=== PATIENT | female | born 1990 | race Caucasian/White ===

== ENCOUNTER 2017-12-30 20:47 | Outpatient (CLI) | payer BC ==
[~2017-12-30] VITALS: Ht 157.5 cm; Wt 81.6 kg
[~2017-12-30 20:47] MED LIST: ENDOCET 5-3251 EACH PO; IBUPROFEN800 MG PO; MOTRIN800 MG PO; PERCOCET 5/31 TABLET PO; PRENATAL TABLE1 EAC3 PO
[2017-12-30 21:06] VITALS: BP 125/73
[2018-01-01] MEDS ORDERED: ZANTAC150 MG PO (08:19)
== END 2017-12-30 23:35 | disposition home or self-care (01) ==
LOC: LDRP-OP 20:47 → 2WEST 20:48 → LDRP-OP 02-08 10:33
DX: O47.1 False labor at or after 37 completed weeks of gestation (principal); Z3A.38 38 weeks gestation of pregnancy; Z87.891 Personal history of nicotine dependence
CPT/HCPCS: 59025; G0378

== ENCOUNTER 2018-01-02 05:42 | Inpatient (IN) | payer OTHER, BC ==
[2018-01-02] VITALS (7 sets, daily range): BP systolic 109–123; BP diastolic 59–66
[~2018-01-02] VITALS: Ht 157.5 cm; Wt 81.8 kg
[~2018-01-02 05:42] MED LIST changes: +ZANTAC150 MG PO
[2018-01-02 06:05] LABS: BASOPHIL (%) 0.2 % (0-1); EOSINOPHIL (%) 1.4 % (0-5); EOSINOPHIL COUNT 0.1 K/uL (0-0.3); HEMATOCRIT 31.3 % (36.0-46.0); HEMOGLOBIN 10.9 G/DL (11.9-15.5); IMMATURE GRANULOCYTE (%) 0.9 % (0.0-0.7); LYMPHOCYTE (%) 19.3 % (15-42); LYMPHOCYTE COUNT 1.6 K/uL (1.0-2.8); MCH 31.7 PG (29.0-34.0); MCHC 34.8 G/DL (30.0-36.0); MONOCYTE (%) 8.1 % (3-12); MONOCYTE COUNT 0.7 K/uL (0-0.8); NEUTROPHIL (%) 70.1 % (45-76); NEUTROPHIL COUNT 5.6 K/uL (1.8-6.4); PLATELET COUNT 107 K/uL (156-360); RBC DIS.WIDTH-CV 11.9 % (11.8-14.6); RBC DIS.WIDTH-SD 38.7 % (39-53); RED BLOOD COUNT 3.44 M/uL (3.80-5.20)
[2018-01-03 03:00] VITALS: BP 109/60
[2018-01-03 07:15] LABS: BASOPHIL (%) 0.2 % (0-1); EOSINOPHIL (%) 0.9 % (0-5); EOSINOPHIL COUNT 0.1 K/uL (0-0.3); HEMATOCRIT 23.6 % (36.0-46.0); LYMPHOCYTE (%) 13.5 % (15-42); LYMPHOCYTE COUNT 1.1 K/uL (1.0-2.8); MCH 31.1 PG (29.0-34.0); MCHC 33.5 G/DL (30.0-36.0); MCV 92.9 FL (83-99); MONOCYTE COUNT 0.7 K/uL (0-0.8); NEUTROPHIL (%) 76.4 % (45-76); NEUTROPHIL COUNT 6.2 K/uL (1.8-6.4); PLATELET COUNT 78 K/uL (156-360); RBC DIS.WIDTH-CV 11.8 % (11.8-14.6); RBC DIS.WIDTH-SD 39.6 % (39-53); WHITE BLOOD COUNT 8.2 K/uL (4.1-10.2)
[2018-01-03 07:25] LABS: HEMOGLOBIN 7.9 G/DL (11.9-15.5); RED BLOOD COUNT 2.54 M/uL (3.80-5.20)
[2018-01-03] MEDS ORDERED: IRON325 M1 PO (09:34)
[2018-01-03] MEDS ORDERED: PERCOCET 5/31 TABLET PO (09:34)
[2018-01-03] MEDS ORDERED: MOTRIN800 MG PO (09:34)
[2018-01-03 19:00] VITALS: BP 122/58
[2018-01-03 23:40] VITALS: BP 114/57
[2018-01-04 03:00] VITALS: BP 122/63
[2018-01-04 22:11] VITALS: BP 122/64
[2018-01-05 07:43] VITALS: BP 118/58
== END 2018-01-05 13:43 | disposition home or self-care (01) | DRG 765 ==
LOC: 2WEST 05:42 → 2SOUTH 09:39 → 2WEST 01-05 13:43
PROVIDERS: Obstetrics & Gynecology
PROC: 10D00Z1 Extraction of Products of Conception, Low, Open Approach (ICD-10-PCS; principal; 2018-01-02)
DX: O64 Obstructed labor due to malposition and malpresentation of fetus (principal); D62 Acute posthemorrhagic anemia; O99.324 Drug use complicating childbirth; O99.12 Other diseases of the blood and blood-forming organs and certain disorders involving the immune mechanism complicating childbirth; O99.354 Diseases of the nervous system complicating childbirth; Z37.0 Single live birth; Z3A.39 39 weeks gestation of pregnancy; O99.02 Anemia complicating childbirth; O12.04 Gestational edema, complicating childbirth; F41.9 Anxiety disorder, unspecified; D69.6 Thrombocytopenia, unspecified; G43.909 Migraine, unspecified, not intractable, without status migrainosus; Z87.891 Personal history of nicotine dependence
CPT/HCPCS: 85025; 86850; 86900; 86901; J0690; J1885; J2175; J2274; J2405; J2765; J7120